=== PATIENT | male | born 1970 | race Caucasian/White ===

== ENCOUNTER → 2017-04-16 | Outpatient (CLI) | payer BC ==
--- NOTE | 2017-04-16 12:57 | EST ---
EXERCISE STRESS DATE OF SERVICE: 04/16/2017 AGE: 46 SEX: Male HT: 5'10" WT: 185 pounds PROTOCOL: CARDIOLITE LEONA STAGE: III DURATION OF EXERCISE: 9 minutes HEART RATE REST: 87 BLOOD PRESSURE REST: 118/86 MAXIMUM HEART RATE ACHIEVED: 157 MAXIMUM BLOOD PRESSURE: 177/55 85% MPHR: 146 100% MPHR: 172 METS: 10.7 INDICATIONS: Chest pain. CLINICAL INFORMATION: STRESS DATA: Pretesting physical examination showed a heart rate of 87, pressure is 118/86 mmHg. Baseline EKG showed sinus rhythm. The patient exercised on the treadmill according to Leona protocol for a total of 9 minutes and achieved 10.7 METs. Max heart rate was 157, which is about 91% of maximum predicted heart rate. Maximum blood pressure was 177/55 mmHg. Clinically the patient did not have any symptoms of chest pain or discomfort. The EKG did not show any significant ST or T-wave abnormalities consistent with ischemia. CONCLUSION: 1. Excellent exercise capacity. 2. Normal EKG in response to exercise. 3. Please follow up on the Cardiolite portion on separate report. MMODL / IJN: [id number] /
--- NOTE | 2017-04-16 13:25 | NM ---
EXAMINATION TYPE: NM stress cardiolite complete DATE OF EXAM: 04/16/2017 COMPARISON: NONE HISTORY: Chest pain TECHNIQUE: After the intravenous administration of 11.2 mCi Tc 99m Sestamibi - Rest images obtained 45 minutes post injection. The patient exercised using a LEONA protocol and 1 minute prior to peak exercise was injected with 28.5 mCi Tc 99m Sestamibi - Stress images obtained 10 minutes post injecti on. FINDINGS: Targeted heart rate was achieved during performance of the study. Review of stress and rest SPECT adam ges demonstrates no distinct fixed or reversible perfusion abnormality. Gated analysis shows normal wall motion with an estimated left ventricular ejection fraction of 63 %. IMPRESSION: 1. No suspicious changes for stress-induced ischemic change.
== END | disposition home or self-care (01) ==
LOC: RADNMMAIN 07:47
PROVIDERS: ATTEND Internal Medicine
DX: R07.9 Chest pain, unspecified (principal)
CPT/HCPCS: 93017; 78452; A9500

== ENCOUNTER → 2017-12-28 | Outpatient (CLI) | payer BC ==
--- NOTE | 2017-12-28 11:06 | CT ---
EXAMINATION TYPE: CT abdomen pelvis wo con DATE OF EXAM: 12/28/2017 COMPARISON: CT abdomen pelvis 09/16/2012 HISTORY: Abdominal mass, previous abnormal CT, abdominal pain CT DLP: 727 mGycm Automated exposure control for dose reduction was used. TECHNIQUE: Helical acquisition of images from the lung bases through the pelvis. FINDINGS: Lack of intravenous contrast could compromise sensitivity. 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 AORTA: No significant abnormality is appreciataed. LIVER/GB: Liver shows low attenuation possibly due to hepatic steatosis, gallbladder is unremarkable. Focal fatty sparing suggested adjacent to the gallbladder. PANCREAS: No significant abnormality is seen. SPLEEN: No significant abnormality is seen. ADRENALS: No significant abnormality is seen. KIDNEYS: No significant abnormality is seen. REPRODUCTIVE ORGANS: No significant abnormality is seen. URINARY BLADDER: No significant abnormality is seen. BOWEL: No significant abnormality is seen. FREE AIR: No Free Air is visible. ASCITES: None visible. PELVIC ADENOPATHY: None visualized. RETROPERITONEAL ADENOPATHY: No Retroperitoneal Adenopathy visible. OSSEOUS STRUCTURES: Degenerative disc changes are present in the visualized spine. 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 HEPATIC STEATOSIS. LUMBAR DEGENERATIVE DIS C DISEASE.
== END ==
LOC: RADCTMAIN 07:43
PROVIDERS: ATTEND Internal Medicine
DX: D17.9 Benign lipomatous neoplasm, unspecified (principal); K76.0 Fatty (change of) liver, not elsewhere classified; R19.00 Intra-abdominal and pelvic swelling, mass and lump, unspecified site
CPT/HCPCS: 74176

== ENCOUNTER → 2022-11-04 | Outpatient (CLI) | payer BC ==
--- NOTE | 2022-11-04 20:08 | US ---
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 No suspicious right nodules. There are a few scattered subcentimeter nodules present in the right
== END | disposition home or self-care (01) ==
LOC: RADUSWWP 14:56
PROVIDERS: ATTEND Internal Medicine Hematology & Oncology
DX: C91.10 Chronic lymphocytic leukemia of B-cell type not having achieved remission (principal); E01.2 Iodine-deficiency related (endemic) goiter, unspecified; E11.9 Type 2 diabetes mellitus without complications; E78.5 Hyperlipidemia, unspecified; Z71.3 Dietary counseling and surveillance
CPT/HCPCS: 76536